=== PATIENT | male | born 1975 | race Caucasian/White ===

== ENCOUNTER 2019-08-27 09:09 | Emergency (ER) | payer SELFPAY ==
[~2019-08-27] VITALS: Ht 170.2 cm; Wt 73.0 kg
[2019-08-27 09:12] VITALS: BP 115/68
== END 2019-08-27 10:03 | disposition home or self-care (01) ==
LOC: ER 09:53
DX: R07.9 Chest pain, unspecified (principal); K00.7 Teething syndrome; F19.10 Other psychoactive substance abuse, uncomplicated
CPT/HCPCS: 93005; 99283